=== PATIENT | female | born 2000 | race Caucasian/White ===

== ENCOUNTER 2019-07-09 12:29 | Emergency (ER) | payer OTHER ==
[2019-07-09] MEDS ORDERED: ONDANSETRON 4 MG TAB.RAPDIS PO ONE (12:59)
[2019-07-09] MEDS ORDERED: KETOROLAC TROMETHAMINE 60 MG/2 ML SDV IM ONE (12:59)
--- NOTE | 2019-07-09 13:02 | ER Document Report ---
ED Medical Screen (RME) - General Chief Complaint: Urinary Problem Stated Complaint: BLOOD IN URINE/ABDOMINAL PAIN/FLANK PAIN Time Seen by Provider: 07/09/19 12:58 Notes: 19-year-old female presents with abdominal pain for 5 days, nausea/vomiti ng/diarrhea, and hematuria. Patient states she is on continuous control so she does not get a period. Abd soft, tenderness RLQ. No guarding or rebound. Pt has a history of appendectomy. I have greeted and performed a rapid initial assessment of this patient. A comprehensive ED assessment and evaluation of the patient, analysis of test results and completion of the medical decision making process with be conducted by additional ED providers. - Related Data Allergies/Adverse Reactions: Penicillins Allergy (Verified 07/09/19 12:58) Sulfa (Sulfonamide Antibiotics) Allergy (Verified 07/09/19 12:58) Physical Exam - Vital signs Vitals: Temp Pulse Resp BP Pulse Ox 98.1 F 77 16 118/63 100 07/09/19 12:39 07/09/19 12:39 07/09/19 12:39 07/09/19 12:39 07/09/19 12:39 Course - Vital Signs Vital signs: Temp Pulse Resp BP Pulse Ox 98.1 F 77 16 118/63 100 07/09/19 12:39 07/09/19 12:39 07/09/19 12:39 07/09/19 12:39 07/09/19 12:39
[2019-07-09 13:44] LABS: ABSOLUTE EOSINOPHILS # (AUTO) 0.2 10^3/uL (0.0-0.6); ABSOLUTE LYMPHOCYTES (AUTO) 1.3 10^3/uL (0.5-4.7); ABSOLUTE MONOCYTES (AUTO) 0.4 10^3/uL (0.1-1.4); ABSOLUTE NEUT (AUTO) 4.5 10^3/uL (1.7-8.2); BASOPHILS % (AUTO) 0.5 % (0-2); EOSINOPHILS % (AUTO) 2.4 % (0-6); HEMATOCRIT 36.8 % (36.0-47.0); LYMPHOCYTES % (AUTO) 20.7 % (13-45); MEAN CORPUSCULAR HEMOGLOBIN 31.6 pg (27.0-33.4); MEAN CORPUSCULAR HGB CONC 35.4 g/dL (32.0-36.0); MEAN CORPUSCULAR VOLUME 89 fl (80-97); MONOCYTES % (AUTO) 6.7 % (3-13); PLATELET COUNT 271 10^3/uL (150-450); RED BLOOD COUNT 4.12 10^6/uL (3.72-5.28); RED CELL DISTRIBUTION WIDTH 13.2 % (11.5-14.0); SEGMENTED NEUTROPHILS % (AUTO) 69.7 % (42-78); TOTAL CELLS COUNTED % (AUTO) 100 %; WHITE BLOOD COUNT 6.4 10^3/uL (4.0-10.5)
[2019-07-09 13:45] LABS: APPEARANCE,URINE SLIGHTLY-CLOUDY; BILIRUBIN,URINE NEGATIVE (NEGATIVE); GLUCOSE, URINE NEGATIVE (NEGATIVE); KETONES,URINE 20 mg/dL (NEGATIVE); PROTEIN,URINE 30 mg/dL (NEGATIVE); URINE SPECIFIC GRAVITY 1.026
[2019-07-09 13:46] LABS: COLOR,URINE DARK YELLOW
[2019-07-09 13:57] LABS: ALBUMIN 4.3 g/dL (3.5-5.0); ALKALINE PHOSPHATASE 61 U/L (38-126); ANION GAP 10 (5-19); ASPARTATE AMINO TRANSFERASE 23 U/L (14-36); BILIRUBIN,TOTAL 0.5 mg/dL (0.2-1.3); BLOOD UREA NITROGEN 10 mg/dL (7-20); CALCIUM 9.4 mg/dL (8.4-10.2); CARBON DIOXIDE 21 mmol/L (22-30); CHLORIDE 107 mmol/L (98-107); GLUCOSE 78 mg/dL (75-110); POTASSIUM 4.1 mmol/L (3.6-5.0); TOTAL PROTEIN 7.5 g/dL (6.3-8.2)
[2019-07-09] MEDS ORDERED: DEXTROSE 5%-LACTATED RINGERS 1,000 ML IV ONE (14:13)
--- NOTE | 2019-07-09 14:15 | ER Document Report ---
Entered by OMEGA MARX SCRIBE 07/09/19 1344 Acting as scribe for:NETTE STILES MD ED GI/ - General Chief Complaint: Urinary Problem Stated Complaint: BLOOD IN URINE/ABDOMINAL PAIN/FLANK PAIN Time Seen by Provider: 07/09/19 12:58 Primary Care Provider: MECHELLE CHAMBERS PA-C [Primary Care Provider] - Follow up as needed Information source: Patient Notes: This 19-year-old female patient presents to the emergency department today with a 5-day history of nausea, vomiting, and diarrhea. Patient states she was seen at an urgent care earlier this week and was told she had an elevated white blood cell count and had blood in her urine. Patient states she has vomited twice today prior to arrival. Patient has had a slight cough. She reports that the pain is in the right lower abdomen area. The pain is made worse with getting up laying down twisting and other activity. TRAVEL OUTSIDE OF THE [place] IN LAST 30 DAYS: Yes - Related Data Allergies/Adverse Reactions: Penicillins Allergy (Verified 07/09/19 12:58) Sulfa (Sulfonamide Antibiotics) Allergy (Verified 07/09/19 12:58) Past Medical History - General Information source: Patient - Social History Smoking Status: Unknown if Ever Smoked Cigarette use (# per day): No Frequency of alcohol use: None Drug Abuse: None Lives with: Family Family History: Reviewed & Not Pertinent Patient has suicidal ideation: No Patient has homicidal ideation: No - Medical History Medical History: Negative Surgical Hx: Negative Review of Systems - Review of Systems Constitutional: No symptoms reported EENT: No symptoms reported Cardiovascular: No symptoms reported Respiratory: No symptoms reported Gastrointestinal: See HPI, Abdominal pain, Diarrhea, Nausea, Vomiting Genitourinary: No symptoms reported Female Genitourinary: No symptoms reported Musculoskeletal: No symptoms reported Skin: No symptoms reported Hematologic/Lymphatic: No symptoms reported Neurological/Psychological: No symptoms reported -: Yes All other systems reviewed and negative Physical Exam - Vital signs Vitals: Temp Pulse Resp BP Pulse Ox 98.1 F 77 16 118/63 100 07/09/19 12:39 07/09/19 12:39 07/09/19 12:39 07/09/19 12:39 07/09/19 12:39 - Notes Notes: Physical Exam: General: Alert, appears well. HEENT: Normocephalic. Atraumatic. PERRL. Extraocular movements intact. Oropharynx clear. Dry mucous membranes. Neck: Supple. Non-tender. Respiratory: No respiratory distress. Clear and equal breath sounds bilaterally. Cardiovascular: Regular rate and rhythm. Abdominal: Patient indicates that the area of maximum pain is in the right pelvis just superior to the inguinal ligaments. There is tenderness with palpation along the entire right side of the abdomen. It seems to be most tender in the right pelvic region just above the inguinal ligament. There does seem to be some tenderness in the inguinal ligament region. No distension. Hypoactive Bowel Sounds. Back: No gross abnormalities. Extremities: Moves all four extremities. Upper extremities: Normal inspection. Normal ROM. Lower extremities: Normal inspection. No edema. Normal ROM. There is no tenderness in the right groin or on the muscular insertions into the pelvic bone. There is no tenderness on adduction of the lower extremities against resistance. Neurological: Normal cognition. AAOx4. Normal speech. Psychological: Normal affect. Normal Mood. Skin: Warm. Dry. Normal color. Course - Re-evaluation Re-evalutation: 07/09/19 15:53 The patient was seen by her primary care provider yesterday and told there was blood in her urine. Today the urine is concentrated with specific gravity 1.026, 20 ketones. There are 3 RBCs per high-power field and it is dipstick negative for blood. The CBC does not suggest an infectious process. Acute abdominal series is unremarkable. Transvaginal ultrasound does not show ovary abnormalities. The physical exam showed almost equal tenderness from the right upper quadrant up under the ribs all the way into the right pelvis which would suggest this may be a muscle strain problem. - Vital Signs Vital signs: Temp Pulse Resp BP Pulse Ox 98.1 F 77 16 118/63 100 07/09/19 12:39 07/09/19 12:39 07/09/19 12:39 07/09/19 12:39 07/09/19 12:39 - Laboratory Result Diagrams: 07/09/19 13:15 07/09/19 13:15 Laboratory results interpreted by me: 07/09/19 07/09/19 13:12 13:15 Carbon Dioxide 21 L Urine Protein 30 H Urine Ketones 20 H Urine Urobilinogen 4.0 H Leukocyte Esterase Rfl MODERATE H - Diagnostic Test Radiology reviewed: Image reviewed, Reports reviewed - Acute abdominal series is unremarkable. Transvaginal ultrasound is normal. Discharge - Discharge Clinical Impression: Pelvic pain, Nausea, vomiting and diarrhea Abdominal pain Qualifiers: Abdominal location: unspecified location Qualified Code(s): R10.9 - Unspecified abdominal pain Condition: Stable Disposition: HOME, SELF-CARE Additional Instructions: Gastroenteritis: You most likely have gastroenteritis. This is an irritation of the stomach and intestinal tract. It's usually caused by a virus, but can also be caused by bacteria, toxins that cause food poisoning, or excessive alcohol intake. Symptoms may include fever, painful abdominal cramps, nausea, vomiting, and diarrhea. Start with small amounts (two to six ounces) of clear liquids (soft drinks, herb teas, broth, etc). Try to take fluids frequently even if you are vomiting, to prevent dehydration. When liquids are being consumed successfully, advance to small amounts of bland food (mashed potato, toast) for 6 - 12 hours. Gastroenteritis rarely requires medication. It goes away by itself. Use good handwashing so you don't spread germs. Wash underwear in very hot water. If symptoms are severe, talk to the doctor. Call your physician if blood appears in your vomitus or stool, if vomiting lasts longer than 24 hours, if the abdominal pain worsens or becomes localized to one area, or if you develop high fever. Your pain on exam seems to be in the abdominal wall muscles from your right upper abdomen all the way down into the pelvic region. This is probably due to muscle strain related to the nausea and vomiting you have been having. Your lab work does not suggest any signs of infection, your urine was negative for blood. The ultrasound did not show any abnormalities of your ovaries. Take the Zofran that was dispensed and prescribed for nausea if needed. Take Tylenol and ibuprofen or Aleve for pain if needed. Drink plenty of cool clear liquids. Get plenty of rest. Try taking Pepto-Bismol or Imodium-AD for the diarrhea if needed. Follow-up with a local primary care provider if not improving over the next few days. RETURN TO THE EMERGENCY ROOM IF ANY NEW OR WORSENING SYMPTOMS. Prescriptions: Ondansetron [Zofran Odt 4 mg Tablet] 1 - 2 tab PO Q4H PRN #10 tab.rapdis PRN Reason: Forms: Return to Work Referrals: MECHELLE CHAMBERS PAEfraC [Primary Care Provider] - Follow up as needed I personally performed the services described in the documentation, reviewed and edited the documentation which was dictated to the scribe in my presence, and it accurately records my words and actions.
--- NOTE | 2019-07-09 15:10 | RADIOLOGY REPORT (SQ) ---
EXAM DESCRIPTION: ACUTE ABDOMEN SERIES COMPLETED DATE/TIME: 07/09/2019 3:01 pm REASON FOR STUDY: N,V,D, Right side abd pain COMPARISON: None. NUMBER OF VIEWS: Three views. TECHNIQUE: Frontal chest, supine abdomen and upright/decubitus abdomen radiographic images acquired. LIMITATIONS: None. FINDINGS: CHEST: Lungs clear of infiltrates. FREE AIR: None. No abnormal gas collections. BOWEL GAS PATTERN: Nonobstructive pattern. No dilated loops or air fluid levels. CALCIFICATIONS: No suspicious calcifications. HARDWARE: None in the abdomen. SOFT TISSUES: No gross mass or suggestion of organomegaly. BONES: No acute fracture. No worrisome bone lesions. OTHER: No other significant finding. IMPRESSION: NO RADIOGRAPHIC EVIDENCE FOR ACUTE ABDOMINAL DISEASE. TECHNICAL DOCUMENTATION: JOB ID: [id number] 2010 [employer]- All Rights Reserved Reading location - IP/workstation name: [email or web address]
--- NOTE | 2019-07-09 15:54 | RADIOLOGY REPORT (SQ) ---
EXAM DESCRIPTION: U/S NON-OB PELVIS TV W/O DOP COMPLETED DATE/TIME: 07/09/2019 3:43 pm REASON FOR STUDY: Right lower pelvic pain x5 days COMPARISON: None. TECHNIQUE: Dynamic and static grayscale images acquired of the pelvis via transvaginal approach and recorded on PACS. Additional selected color Doppler and spectral images recorded. LIMITATIONS: None. FINDINGS: UTERUS: Contour normal. No mass. ENDOMETRIAL STRIPE: No focal or generalized thickening. No masses. CERVIX: No nabothian cysts. RIGHT OVARY AND DOPPLER: Normal size. No worrisome masses. Normal arterial vascular flow without evid ence for torsion. LEFT OVARY AND DOPPLER: Normal size. No worrisome masses. Normal arterial vascular flow without evide nce for torsion. FREE FLUID: None noted. OTHER: No other significant finding. MEASUREMENTS: UTERUS: 3.6 x 4.8 x 7.6 cm. ENDOMETRIAL STRIPE: 4 mm. RIGHT OVARY: 1.1 x 1.5 x 2.7 cm. LEFT OVARY: 1.3 x 1.6 x 2.3 cm. IMPRESSION: NORMAL TRANSVAGINAL PELVIC ULTRASOUND. TECHNICAL DOCUMENTATION: JOB ID: [id number] 2010 [employer]- All Rights Reserved Rev-09/22 Reading location - IP/workstation name: [email or web address]
[2019-07-09] MEDS ORDERED: ONDANSETRON HCL INJ/PF 4 MG/2 ML SDV IV ONE (16:16)
[2019-07-09] MEDS ORDERED: ONDANSETRON ODT 4 MG TAB (6 TAB/ER DISP) PO PRN (16:17)
[2019-07-09 16:43] VITALS: BP 118/60
== END 2019-07-09 16:45 | disposition home or self-care (01) ==
LOC: ER 12:29
DX: R10.2 Pelvic and perineal pain (principal); R11.2 Nausea with vomiting, unspecified; R19.7 Diarrhea, unspecified; R05 Cough; R10.811 Right upper quadrant abdominal tenderness; R10.813 Right lower quadrant abdominal tenderness; Z88.0 Allergy status to penicillin; Z88.2 Allergy status to sulfonamides
CPT/HCPCS: 99284; 96372; 96361; 96374; 36415; 83690; 84703; 85025; 80053; 81001; 74022; 76830; J1885; S0119; J2405; J7121